=== PATIENT | male | born 1965 | race African-American/Black ===

== ENCOUNTER 2022-08-23 13:47 | Emergency (ER) | payer SELFPAY ==
[~2022-08-23] VITALS: Ht 175.3 cm; Wt 90.7 kg
[2022-08-23 14:04] VITALS: BP_SYST 160
[2022-08-23] MEDS ORDERED: METF-834 PO (14:37)
[2022-08-23 14:48] VITALS: BP_SYST 160
== END 2022-08-23 14:49 ==
LOC: SED 13:47
DX: Z02.89 Encounter for other administrative examinations (principal); M25.561 Pain in right knee; E11.9 Type 2 diabetes mellitus without complications; I10 Essential (primary) hypertension; Z79.899 Other long term (current) drug therapy
CPT/HCPCS: 99283

== ENCOUNTER 2022-08-23 23:58 | Emergency (ER) | payer SELFPAY ==
[~2022-08-23] VITALS: Ht 180.3 cm; Wt 108.9 kg
[~2022-08-23 23:58] MED LIST: METF-834 PO
[2022-08-24 00:15] VITALS: BP_SYST 150
[2022-08-24 00:49] VITALS: BP_SYST 138
[2022-08-24 01:50] VITALS: BP_SYST 112
== END 2022-08-24 01:50 ==
LOC: SED 23:58
DX: Z02.89 Encounter for other administrative examinations (principal); E11.9 Type 2 diabetes mellitus without complications; I10 Essential (primary) hypertension; Z79.899 Other long term (current) drug therapy
CPT/HCPCS: 99283